=== PATIENT | male | born 1965 | race Caucasian/White ===

== ENCOUNTER 2019-05-11 13:04 | Emergency (ER) | payer OTHER ==
[2019-05-11 13:36] VITALS: BP 193/124
--- NOTE | 2019-05-11 14:54 | ED Physician Documentation ---
PD HPI HEENT - Stated complaint Stated Complaint: R EAR PX - Chief complaint Chief Complaint: Heent - History obtained from History obtained from: Patient - History of Present Illness Timing - onset: Other (About 10 days ago zackery developed a flulike illness, that is all resolved but now 3 days of muffled hearing on the right and ear pain, also a cough and congestion in his chest. No fevers or shortness of breath.) Review of Systems Constitutional: denies: Fever, Chills Nose: reports: Rhinorrhea / runny nose Throat: denies: Sore throat PD PAST MEDICAL HISTORY - Past Medical History Past Medical History: No - Past Surgical History Past Surgical History: Yes - Present Medications Home Medications: Ambulatory Orders Medication Instructions Recorded Confirmed Albuterol Sulf [Ventolin Hfa 1 - 2 puffs INH Q4HR PRN #1 inhaler 05/11/19 Inhaler] Amox/Clav 875/125 [Augmentin] 1 each PO Q12H #20 tablet 05/11/19 - Allergies Allergies/Adverse Reactions: Allergies Allergy/AdvReac Type Severity Reaction Status Date / Time No Known Drug Allergies Allergy Verified 05/11/19 13:36 - Social History Does the pt smoke?: No Smoking Status: Never smoker Does the pt drink ETOH?: Yes ETOH Use: Wine - Immunizations Immunizations are current?: Yes PD ED PE NORMAL - Vitals Vital signs reviewed: Yes - General General: Alert and oriented X 3, No acute distress - HEENT HEENT: Other (Severe right otitis media, left TM normal) - Cardiac Cardiac: RRR, No murmur - Respiratory Respiratory: No respiratory distress, Other (Rhonchorous throughout without focal findings) - Abdomen Abdomen: Non tender - Neuro Neuro: Alert and oriented X 3, Normal speech - Psych Psych: Normal mood, Normal affect Results - Vitals Vitals: Vital Signs - 24 hr 05/11/19 13:33 Temperature 36.7 C Heart Rate 112 H Respiratory 14 Rate Blood Pressure 193/124 H O2 Saturation 100 Oxygen O2 Source Room air Departure - Departure Disposition: Home, Self Care Clinical Impression: ROM (right otitis media) Qualifiers: Otitis media type: suppurative Chronicity: acute Recurrence: non-recurrent Spontaneous tympanic membrane rupture: without spontaneous rupture Qualified Code(s): H66.001 - Acute suppurative otitis media without spontaneous rupture of ear drum, right ear Condition: Good Record reviewed to determine appropriate education?: Yes Instructions: ED Otitis Media Acute Adult Prescriptions: Albuterol Sulf [Ventolin Hfa Inhaler] 1 - 2 puffs INH Q4HR PRN #1 inhaler PRN Reason: Shortness Of Air/Wheezing Amox/Clav 875/125 [Augmentin] 1 each PO Q12H #20 tablet Comments: Call your doctor to arrange a follow-up appointment, make the next available appointment. In the interim, return anytime if worse or if new symptoms develop. Your blood pressure was elevated today on check into the emergency department. This does not mean that you have hypertension, it is a common phenomenon to come to the emergency department and have elevated blood pressure. I recommend that you see your primary care physician within the week to have it rechecked when you are feeling better.
== END 2019-05-11 15:01 | disposition home or self-care (01) ==
LOC: ED 13:04
DX: H66.001 Acute suppurative otitis media without spontaneous rupture of ear drum, right ear (principal); R05 Cough; R03.0 Elevated blood-pressure reading, without diagnosis of hypertension
CPT/HCPCS: 99282; 99283